=== PATIENT | male | born 1950 | race Caucasian/White ===

== ENCOUNTER 2017-02-02 12:48 | Outpatient (CLI) | payer OTHER ==
--- NOTE | 2017-02-04 18:54 | DIAGNOSTIC IMAGING REPORT ---
REFERRING PHYSICIAN/PROVIDER: Kelin Andrade MD CONSULTING PHARMACY DELIVERY DRIVER: Nir Tobar MD PROCEDURE: M-mode 2D echocardiography with spectral and color flow Doppler TECHNICAL QUALITY: Fair INDICATION: ACUTE ON CHRONIC SYSTOLIC HEART FAILURE RHYTHM DURING PROCEDURE: Atrial fibrillation INTERPRETATIONS: LEFT VENTRICLE: There is mild left ventricular enlargement noted. The left ventricular systolic function is estimated at 55%. There is mild left ventricular hypertrophy noted. RIGHT VENTRICLE: The right ventricle is mildly dilated in size. There is normal right ventricular systolic function. ATRIA: There is severe biatrial enlargement noted MITRAL VALVE: There is moderate to severe mitral regurgitation noted. AORTIC VALVE: There is mild aortic valve sclerosis with no significant stenosis and no significant regurgitation noted. TRICUSPID VALVE: There is moderate to severe tricuspid regurgitation noted. The estimated right ventricular systolic pressure is 53 mmHg. PULMONIC VALVE: There is trace pulmonic regurgitation noted. GREAT VESSELS: The great vessels appear normal in size. PERICARDIUM: There is no significant pleural effusion or pericardial effusion. IMPRESSION: 1. Mild biventricular enlargement with normal biventricular systolic function 2. Mild concentric left ventricular hypertrophy 3. Severe biatrial enlargement 4. Mild aortic valve sclerosis without any significant stenosis 5. Moderate to severe mitral regurgitation 6. Moderate to severe tricuspid regurgitation 7. Severely increased right ventricular systolic pressure (RVSP = 53 mmHg)
== END 2017-02-02 23:00 ==
LOC: US SRH 12:48
DX: I50.22 Chronic systolic (congestive) heart failure (principal); I34.0 Nonrheumatic mitral (valve) insufficiency; I07.1 Rheumatic tricuspid insufficiency; I35.8 Other nonrheumatic aortic valve disorders